=== PATIENT | male | born 1960 | race Caucasian/White ===

== ENCOUNTER → 2018-06-06 | Outpatient (CLI) | payer MEDICAID, OTHER ==
--- NOTE | 2018-06-06 12:08 | CARD ---
MR#: [id number] Date of Study: 06/06/2018 Ordering Physician: ELEUTERIO TORRES, Referring Physician: ELEUTERIO TORRES, Tech: Elysia Jain APPROVED REPORT EXAM: Two-dimensional and M-mode echocardiogram with Doppler and color Doppler. Other Information Quality : GoodHR: 70bpm Rhythm : NSR INDICATION Peripheral Edema RISK FACTORS Smoking 2D DIMENSIONS RVDd2.1 (2.9-3.5cm)Left Atrium(2D)4.4 (1.6-4.0cm) IVSd0.9 (0.7-1.1cm)Aortic Root(2D)3.0 (2.0-3.7cm) LVDd5.4 (3.9-5.9cm)LVOT Diameter2.2 (1.8-2.4cm) PWd1.0 (0.7-1.1cm)LVDs3.9 (2.5-4.0cm) FS (%) 27.7 %SV74.2 ml LVEF(%)53.2 (>50%) Aortic Valve AoV Peak Zaid.102.7cm/sAoV VTI24.5cm AO Peak GR.4.2mmHgLVOT Peak Zaid.87.4cm/s AO Mean GR.2mmHgAVA (VMAX)3.19cm2 Mitral Valve MV E Eqprvvpm72.7cm/sMV DECEL NURU092ki MV A Aagleyvf41.4cm/sE/A Ratio2.1 Pulmonary Valve PV Peak Yuyckxmt58.0cm/s Tricuspid Valve TR P. Iwkjltpl199tt/sRAP SIAKYXGT6zsDe TR Peak Gr.00cnYzWAYF52fyQq Pulmonary Vein S1 Cbsutkst83.5cm/sD2 Gwkephcg47.4cm/s PVa [id number] LEFT VENTRICLE The left ventricle is normal size. There is borderline to mild concentric left ventricular hypertroph y. The left ventricular systolic function is normal and the ejection fraction is within normal range. The Ejection Fraction is 50-55%. There is normal LV segmental wall motion. RIGHT VENTRICLE The right ventricle is normal size. There is normal right ventricular wall thickness. The right ventr icular systolic function is normal. ATRIA The left atrium is moderately dilated. The right atrium size is normal. The interatrial septum is int act with no evidence for an atrial septal defect or patent foramen ovale as noted on 2-D or Doppler i maging. AORTIC VALVE The aortic valve is normal in structure and function. Doppler and Color Flow revealed trace aortic re gurgitation. There is no significant aortic valvular stenosis. MITRAL VALVE The mitral valve is thickened but opens well. There is no mitral valve stenosis. Doppler and Color-fl ow revealed trace mitral regurgitation. TRICUSPID VALVE The tricuspid valve is normal in structure and function. Doppler and Color Flow revealed trace tricus pid regurgitation. There is no tricuspid valve stenosis. PULMONIC VALVE The pulmonic valve is not well visualized. Doppler and Color Flow revealed trace pulmonic valvular re gurgitation. There is no pulmonic valvular stenosis. GREAT VESSELS The aortic root is normal in size. Normal pulmonary venous flow (Doppler). The IVC is normal in size and collapses >50% with inspiration. PERICARDIAL EFFUSION There is no evidence of significant pericardial effusion. Critical Notification Critical Value: No <Conclusion> The left ventricular systolic function is normal and the ejection fraction is within normal range. Th e Ejection Fraction is 50-55%. There is normal LV segmental wall motion. Signed by : Gage Kowalski, Electronically Approved : 06/06/2018 12:07:47
--- NOTE | 2018-06-06 15:35 | RAD ---
MR#: [id number] Date of Study: 06/06/2018 Ordering Physician: MARILY CM, Referring Physician: ELEUTERIO TORRES, Tech: Roger Kinney MBA, RDMS, RVT, RDCS, RTR APPROVED REPORT Patient Location : OUT-PATIENT Indications Lower Extremity Edema : Bilateral Findings Grayscale images of the bilateral lower extremity saphenofemoral junctions, greater and lesser saphen ous veins do not demonstrate any obvious evidence of thrombus. The right great saphenous vein measures approximately 4.6 mm and the left great saphenous vein measur es 5.4 mm. Both of these veins do not show any evidence of reflux. Bilateral lesser saphenous veins do not show any evidence of reflux. Critical Notification Critical Value: No <Conclusion> No reflux in the bilateral greater and lesser saphenous veins Signed by : Gage Kowalski, Electronically Approved : 06/06/2018 15:34:12
== END | disposition home or self-care (01) ==
LOC: ECHO 10:35 → EDUNIT# 11:00
PROVIDERS: ATTEND Psychiatry & Neurology Neurology with Special Qualifications in Child Neurology
DX: R60.1 Generalized edema (principal); I51.7 Cardiomegaly; F17.200 Nicotine dependence, unspecified, uncomplicated
CPT/HCPCS: 93306; 93970

== ENCOUNTER → 2018-06-06 | Outpatient (CLI) | payer OTHER ==
--- NOTE | 2018-06-06 15:32 | RAD ---
MR#: [id number] Date of Study: 06/06/2018 Ordering Physician: MARILY CM, Referring Physician: MARILY CM, Tech: Roger Kinney MBA, RDMS, RVT, RDCS, RTR APPROVED REPORT Patient Location: OUT-PATIENT Indications Claudication:Bilaterally VELOCITY AND DOPPLER WAVEFORM ANALYSIS RIGHT cm/secWaveformSeverity LEFT cm/secWaveform Severity dCFA 172.0TriphasicdCFA 150.0Triphasic Prof Fem Art. 103.0TriphasicProf Fem Art. 116.0Triphasic Fem Art Prox. 174.0TriphasicFem Art Prox. 165.0Triphasic Fem Art Mid. 174.0TriphasicFem Art Mid. 165.0Triphasic Fem Art Dist. 136.0TriphasicFem Art Dist. 149.0Triphasic Pop Art(Fossa) 72.0TriphasicPop Art(AK) 79.0Triphasic MACHINE SHOP INSTRUCTOR Prox. 104.0TriphasicPTA Prox. 102.0Triphasic MACHINE SHOP INSTRUCTOR Dist. 103.0TriphasicPTA Dist. 117.0Triphasic Per Art Mid. 46.0TriphasicPer Art Mid. 82.0Biphasic MEGAN Prox. 92.0TriphasicATA Prox. 108.0Biphasic DPA 57TriphasicDPA 100Biphasic Findings Spectral waveforms and straight mildly elevated velocities in the bilateral common femoral and superf icial femoral arteries. No focal high-grade stenosis is identified. Are mostly triphasic and biphasic waveforms throughout the lower extremity arterial vessels with three-vessel runoff below the knees. Critical Notification Critical Value: No <Conclusion> No significant objective lower extremity arterial disease. Signed by : Gage Kowalski, Electronically Approved : 06/06/2018 15:31:46
--- NOTE | 2018-06-06 15:34 | RAD ---
MR#: [id number] Date of Study: 06/06/2018 Ordering Physician: MARILY CM, Referring Physician: MARILY CM, Tech: Roger Kinney MBA, RDMS, RVT, RDCS, RTR APPROVED REPORT Bilateral Lower Extremity Venous Study for DVT Patient Location: OUT-PATIENT Indications Lower Extremity Edema: Bilateral Vein Imaging (Right) CFV (R): Compressible SFJ (R): Compressible FEM (R): Compressible POP (R): Compressible DFV (R): Compressible PTV (R): Spontaneous GSV (R): Compressible Peroneals (R): Spontaneous Vein Imaging (Left) CFV (L): Compressible SFJ (L): Compressible FEM (L): Compressible POP (L): Compressible DFV (L): Compressible PTV (L): Spontaneous GSV (L): Compressible Peroneals (L): Spontaneous Doppler Evaluation (Right) CFV (R): Spontaneous POP (R):Spontaneous Doppler Evaluation (Left) CFV (L):Spontaneous POP (L):Spontaneous Findings The bilateral lower extremity deep veins were evaluated for thrombus with color Doppler, spectral and grayscale images. On the right the grayscale images of the common femoral, superficial femoral and popliteal veins do n ot demonstrate any evidence of thrombus and these veins appear to be compressible. The below-knee vei ns were not well visualized but grossly appear to be compressible. Spectral imaging and color Doppler do not reveal any evidence of obstruction to flow with normal respirophasic variation above the knee . Below the knee there is spontaneous flow noted. On the left, the grayscale images of the common femoral, superficial femoral and popliteal veins do n ot demonstrate any evidence of thrombus and these veins appear to be compressible. The below-knee vei ns again were not well visualized but grossly appear to be compressible. Spectral imaging and color D oppler do not reveal any evidence of obstruction to flow with normal respirophasic variation above th e knee. The below-knee veins demonstrate spontaneous flow. Critical Notification Critical Value: No <Conclusion> No evidence of bilateral lower extremity DVT. Signed by : Gage Kowalski, Electronically Approved : 06/06/2018 15:33:06
== END | disposition home or self-care (01) ==
LOC: US 13:52
PROVIDERS: ATTEND Internal Medicine Cardiovascular Disease
DX: I73.9 Peripheral vascular disease, unspecified (principal); R60.0 Localized edema
CPT/HCPCS: 93925; 93970